=== PATIENT | male | born 1960 | race Caucasian/White ===

== ENCOUNTER → 2021-08-13 | Outpatient (REF) | LOC: M PLAIMG 12:52 → M PLALAB 12:52 | PROVIDERS: ATTEND Internal Medicine | DX: M25.711 Osteophyte, right shoulder (principal); M25.511 Pain in right shoulder; M25.571 Pain in right ankle and joints of right foot ==

== ENCOUNTER → 2021-10-09 | Outpatient (CLI) | payer MEDICAID | LOC: M PAIN 13:30 | PROVIDERS: ATTEND Nurse Practitioner Family | DX: M25.511 Pain in right shoulder (principal); M25.512 Pain in left shoulder; G89.29 Other chronic pain; R10.9 Unspecified abdominal pain; J45.909 Unspecified asthma, uncomplicated; Z86.59 Personal history of other mental and behavioral disorders; Z88.8 Allergy status to other drugs, medicaments and biological substances; E66.01 Morbid (severe) obesity due to excess calories; Z68.41 Body mass index [BMI] 40.0-44.9, adult; Z79.899 Other long term (current) drug therapy ==